=== PATIENT | male | born 1970 | race Caucasian/White ===

== ENCOUNTER 2019-06-13 15:53 | Emergency (ER) | payer OTHER ==
[~2019-06-13] VITALS: Ht 188 cm; Wt 78.0 kg
[~2019-06-13 15:53] MED LIST: FLO0.4C PO; IBUP-1984 PO; OXYC-150 PO; VAL5T PO
[2019-06-13 15:56] VITALS: BP 154/103
[2019-06-13] MEDS ORDERED: TETanus/Pertussis (Acell)/Diphther VAC/PF (Tdap-Adult) 0.5ml syringe IMVAC ONE (16:05)
[2019-06-13] MEDS ORDERED: bacitracin 15gm ointment TP ONE (16:05)
[2019-06-13] MEDS ORDERED: LIDOcaine 1% W/epiNEPHrine 1:200,000 10ml vial IJ ONE (16:05)
== END 2019-06-13 17:24 | disposition home or self-care (01) ==
LOC: ER 15:55
DX: S91.012A Laceration without foreign body, left ankle, initial encounter (principal); Z98.890 Other specified postprocedural states; Z88.1 Allergy status to other antibiotic agents; Z79.899 Other long term (current) drug therapy; W26.8XXA Contact with other sharp object(s), not elsewhere classified, initial encounter; Y93.89 Activity, other specified; Y92.89 Other specified places as the place of occurrence of the external cause; Y99.8 Other external cause status
CPT/HCPCS: 12002; 73610; 90471; 90715; 99283